=== PATIENT | male | born 1970 | race Caucasian/White ===

== ENCOUNTER 2016-05-11 01:28 | Emergency (ER) | payer MEDICAID ==
[2016-05-11] MEDS ORDERED: LIDOCAINE 2% VISC 15 ML UDC ONE (03:34)
[2016-05-11] MEDS ORDERED: ALU/MAG/SIM 30 ML UDC ONE (03:34)
== END 2016-05-11 04:58 | disposition home or self-care (01) ==
LOC: ER 01:28
DX: K29.00 Acute gastritis without bleeding (principal)
CPT/HCPCS: 36415; 74022; 80053; 81003; 83690; 85025; 86677